=== PATIENT | female | born 1980 | race Caucasian/White ===

== ENCOUNTER 2018-02-13 18:44 | Emergency (ER) | payer OTHER, BC ==
[2018-02-13 19:05] VITALS: BP 131/91; PULSE 91; RESP 16; TEMP 98.7; O2SAT 100
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
== END 2018-02-13 21:00 | disposition home or self-care (01) ==
LOC: H.ER 18:44
DX: M54.9 Dorsalgia, unspecified (principal); V43.52XA Car driver injured in collision with other type car in traffic accident, initial encounter; Y92.410 Unspecified street and highway as the place of occurrence of the external cause